=== PATIENT | male | born 1950 | race Caucasian/White ===

== ENCOUNTER 2018-03-16 13:53 | Outpatient (RCR) | payer MEDICARE, OTHER ==
[~2018-03-16 13:53] MED LIST: ASCO-504 PO; ASPI81TA94 PO; B.AN1CAP2 PO; CHOL200021 PO; CHOL500045 PO; DOCU-202 PO; GLUC500C29 PO; IBUP600T22 PO; MULT1CAP41 PO; MULT1CAP59 PO; NONE CURRENTLY; OMEG-11 PO; OXYC-854 PO
[2018-03-16 14:00] VITALS: BP 107/69
[2018-03-16 14:51] VITALS: BP 116/76
--- NOTE | 2018-03-16 22:08 | [facility] ONCOLOGY NOTE ---
EVENT DATE: March 16, 2018 DIAGNOSES 1. History of iron overload. 2. Acute confusional state, recovered with phlebotomy sessions. 3. History of arthritis. 4. Glucose intolerance. 5. History of herpes genitalia. 6. History of gastritis. CHIEF COMPLAINT Patient is here today for followup of his iron overload. HEMATOLOGY HISTORY The patient is a 67-year-old male who was given a diagnosis of iron overload a few years ago, and the patient was on phlebotomy sessions at that time, but he did not have any phlebotomy sessions for about two years until recently when patient presented with acute confusion for over two months. The patient has been seen by EZEKIEL Pettit, and had some blood work which showed white count of 4.6, hemoglobin 15, hematocrit 44.4% and platelets 179,000. He had a serum ferritin at that time of 323, which was in the normal range. Vitamin D was normal at 34. PSA was normal at 0.5. His chem panel was totally normal except blood sugar was 103. Hemoglobin A1c was 5.7. The patient had a phlebotomy session, and he felt much better and returned back to his normal baseline after that. HISTORY OF PRESENT ILLNESS Patient is here today for followup of his iron overload. He is doing fine currently. Apart from having some stiffness in his joints in the morning, patient who is up during the day, does not have any other complaints. PAST MEDICAL HISTORY History of iron overload, glucose intolerance, arthritis, gastritis. History of herpes genitalia. PAST SURGICAL HISTORY Appendectomy in 1994, double hernia surgery in 2007, tonsillectomy and adenoidectomy as a child at age of [age]. SOCIAL HISTORY The patient is with a son and daughter. He works as a paint contractor. Denies any abuse of tobacco, alcohol or drugs. FAMILY HISTORY Mother had colon cancer at the age of fifty, there is no family history of hemochromatosis. CURRENT MEDICATIONS Multivitamins. ALLERGIES No known drug allergies REVIEW OF SYSTEMS CONSTITUTIONAL: No appetite or weight change. No fever, chills or sweating. No recent infection. HEENT: Ears: No tinnitus or hearing problem. Nose: No nasal discharge or epistaxis. Throat: No sore throat or mouth ulcers. Eyes: No diplopia or visual changes. RESPIRATORY: No shortness of breath. No cough, expectoration or hemoptysis. CARDIOVASCULAR: No chest pain, orthopnea, or paroxysmal nocturnal dyspnea (PND) . No edema. No palpitations. GASTROINTESTINAL: No nausea or vomiting. No diarrhea or constipation. No change in bowel movements. No heartburn or swallowing difficulties. No abdominal pain. No jaundice. No hematemesis, melena or rectal bleeding. GENITOURINARY: No hematuria or dysuria. MUSCULOSKELETAL: Patient has stiff joints, especially in the morning. NEUROLOGICAL: No tingling or numbness in the hands or feet. No headaches or convulsions. HEMATOLOGIC/LYMPHATIC: No bleeding or easy bruising. No weakness or fatigued. No enlarged lymph nodes. SKIN: No skin rash or lumps. PSYCHIATRIC: No anxiety or depression. PHYSICAL EXAMINATION GENERAL: Looks stable. Well-developed, well-nourished, and in no acute distress. VITAL SIGNS: Blood pressure 107/69, pulse 70 per minute, respirations 16 per minute, temperature 98.2, pulse oximetry 93% on room air. HEENT: Head: Atraumatic. No sinus tenderness to palpation. Eyes: No icterus or conjunctivitis. Mouth and throat: No oral thrush or mucositis. NECK: Supple. No cervical or supraclavicular lymphadenopathy. LUNGS: Clear to auscultation and percussion bilaterally. HEART: Regular rate and rhythm. No gallops, murmurs, clicks or rubs. ABDOMEN: Soft and lax. No tenderness. No hepatosplenomegaly. No masses. EXTREMITIES: No cyanosis, clubbing or edema. LYMPHATICS: No peripheral lymphadenopathy. NEUROLOGICAL: Conscious, alert and oriented times three. No focal motor or sensory deficits. PSYCHIATRIC: Mood and affect appear normal. SKIN: No skin rash, bruise or purpuric eruption. DIAGNOSTIC DATA CBC shows white count 4.7, hemoglobin 15.4, hematocrit 45.5, platelets 209,000. Iron studies showed serum iron 103, iron saturation 42, TIBC 244, and ferritin is 303, which is up from 237 with his last visit. ASSESSMENT 1. History of iron overload with possible hemochromatosis. Iron studies today showed serum ferritin of 303, which is up from 237. Patient had a problem when he was having high iron in the past, and for this reason, we are planning to do a phlebotomy this time as long as his ferritin is above 300. I plan to see him in six months from now with CBC and iron studies with ferritin at that time. 2. History of acute confusional state for about two months, recovered with phlebotomy incisions. Etiology was unclear. 3. History of arthritis. PLAN 1. Phlebotomize 500 mL blood today. 2. Patient to return in six months with CBC and iron studies with ferritin. 3. Patient will contact us for any new concern or complaints. SABRA
== END 2018-03-17 09:29 | disposition home or self-care (01) ==
LOC: ONC 13:53
PROVIDERS: ATTEND Internal Medicine Hematology
DX: E83.119 Hemochromatosis, unspecified (principal)
CPT/HCPCS: 99195; G0463; 99212

== ENCOUNTER 2018-09-14 14:00 | Outpatient (RCR) | payer MEDICARE, OTHER ==
[2018-09-14 14:02] VITALS: BP 105/68
--- NOTE | 2018-09-14 20:29 | [facility] ONCOLOGY NOTE ---
EVENT DATE: September 14, 2018 DIAGNOSES 1. History of iron overload. 2. Acute confusional state, recovered with phlebotomy sessions. 3. History of arthritis. 4. Glucose intolerance. 5. History of herpes genitalia. 6. History of gastritis. CHIEF COMPLAINT Patient is here today for followup of his iron overload. HEMATOLOGY HISTORY The patient is a 67-year-old male who was given a diagnosis of iron overload a few years ago, and the patient was on phlebotomy sessions at that time, but he did not have any phlebotomy sessions for about two years until recently when patient presented with acute confusion for over two months. The patient has been seen by EZEKIEL Pettit, and had some blood work which showed white count of 4.6, hemoglobin 15, hematocrit 44.4%, and platelets 179,000. He had a serum ferritin at that time of 323, which was in the normal range. Vitamin D was normal at 34. PSA was normal at 0.5. His chem panel was totally normal except blood sugar was 103. Hemoglobin A1c was 5.7. The patient had a phlebotomy session, and he felt much better and returned back to his normal baseline after that. HISTORY OF PRESENT ILLNESS Patient is here today for followup of his iron overload. He is doing fine currently, and he is totally asymptomatic. PAST MEDICAL HISTORY 1. History of iron overload. 2. Glucose intolerance. 3. Arthritis. 4. Gastritis. 5. History of herpes genitalia. PAST SURGICAL HISTORY 1. Appendectomy in 1994. 2. Double hernia surgery in 2007. 3. Tonsillectomy and adenoidectomy as a child at age of [age]. SOCIAL HISTORY The patient is with a son and a daughter. He works as a paint contractor. Denies any abuse of tobacco, alcohol, or drugs. FAMILY HISTORY Mother had colon cancer at the age of 50. There is no family history of hemochromatosis. CURRENT MEDICATIONS Multivitamins. ALLERGIES No known drug allergies. REVIEW OF SYSTEMS CONSTITUTIONAL: No appetite or weight change. No fever, chills or sweating. No recent infection. HEENT: Ears: No tinnitus or hearing problem. Nose: No nasal discharge or epistaxis. Throat: No sore throat or mouth ulcers. Eyes: No diplopia or visual changes. RESPIRATORY: No shortness of breath. No cough, expectoration or hemoptysis. CARDIOVASCULAR: No chest pain, orthopnea, or paroxysmal nocturnal dyspnea (PND). No edema. No palpitations. GASTROINTESTINAL: No nausea or vomiting. No diarrhea or constipation. No change in bowel movements. No heartburn or swallowing difficulties. No abdominal pain. No jaundice. No hematemesis, melena or rectal bleeding. GENITOURINARY: No hematuria or dysuria. MUSCULOSKELETAL: No pain in the muscles, joints or bones. NEUROLOGICAL: No tingling or numbness in the hands or feet. No headaches or convulsions. HEMATOLOGIC/LYMPHATIC: No bleeding or easy bruising. No weakness or fatigued. No enlarged lymph nodes. SKIN: No skin rash or lumps. PSYCHIATRIC: No anxiety or depression. PHYSICAL EXAMINATION GENERAL: Looks stable. Well developed, well nourished, and in no acute distress. VITAL SIGNS: Blood pressure 105/68, pulse 67 per minute, respirations 16 per minute, temperature 97.7, pulse ox 93% on room air. HEENT: Head: Atraumatic. No sinus tenderness to palpation. Eyes: No icterus or conjunctivitis. Mouth and Throat: No oral thrush or mucositis. NECK: Supple. No cervical or supraclavicular lymphadenopathy. LUNGS: Clear to auscultation and percussion bilaterally. HEART: Regular rate and rhythm. No gallops, murmurs, clicks, or rubs. ABDOMEN: Soft and lax. No tenderness. No hepatosplenomegaly. No masses. EXTREMITIES: No cyanosis, clubbing, or edema. LYMPHATICS: No peripheral lymphadenopathy. NEUROLOGICAL: Conscious, alert, and oriented times three. No focal motor or sensory deficits. PSYCHIATRIC: Mood and affect appear normal. SKIN: No skin rash, bruise, or purpuric eruption. DIAGNOSTIC DATA CBC shows white count 5000, hemoglobin 16, hematocrit 47, platelets 168,000. Serum iron was 91, TIBC 270, iron saturation 34%, and ferritin is 312. ASSESSMENT 1. History of iron overload with possible hemochromatosis. Iron studies today showed ferritin 312, which is up from 303 six months ago, but the patient had phlebotomy at that time. His iron saturation is 34%. Given that his history in the past was high iron, and the patient actually recovered with phlebotomy, I am planning to phlebotomize 500 mL blood to keep his iron studies at the same level. I am planning to see him again in six months with CBC and iron studies with ferritin. 2. History of acute confusional state for about two months, recovered with phlebotomy sessions. Etiology was unclear. 3. History of arthritis. PLAN 1. Phlebotomize 500 mL blood today. 2. Patient to return in six months with CBC and iron studies with ferritin. 3. Patient will contact us for any new concern or complaints. YOMID
== END 2018-10-30 12:06 | disposition home or self-care (01) ==
LOC: ONC 14:00
PROVIDERS: ATTEND Internal Medicine Hematology
DX: E83.119 Hemochromatosis, unspecified (principal)
CPT/HCPCS: 99212